=== PATIENT | female | born 1995 | race Caucasian/White ===

== ENCOUNTER → 2023-05-11 11:23 | Outpatient (CLI) | payer BC, SELFPAY ==
--- NOTE | ~2023-05-11 | XR_ITS ---
XR abdomen/kub 1V 05/11/2023 11:42 INDICATION: Abdominal pain TECHNIQUE: KUB COMPARISON: No prior studies for comparison. FINDINGS: Bowel gas pattern is normal. There is no evidence of free air, mass, organomegaly, ascites or obstruction. No abnormal calculi are seen. The bones appear intact. IMPRESSION: 1: No acute abdominal abnormality identified. Reviewed, dictated and finalized at location []
== END ==
PROVIDERS: PCP Family Medicine; Visit Provider Physician Assistant
DX: R10.9 Unspecified abdominal pain (principal)
CPT/HCPCS: 74018

== ENCOUNTER → 2023-05-17 08:45 | Outpatient (CLI) | payer BC, SELFPAY ==
--- NOTE | ~2023-05-17 | US_ITS ---
Abdominal Sonogram: Real-time sonographic imaging of the abdomen was performed. Clinical History: Abdominal pain Findings: The liver appears normal with no evidence of mass lesion or bile duct dilatation. Main por tevin vein demonstrates normal direction of flow. The spleen is normal in size without evidence of foca l lesion. The gallbladder is well distended, and appears normal with no evidence of gallstone or wal l thickening. The common bile duct measures 4 mm. The visualized pancreas, aorta, and IVC are unrema rkable. The right kidney measures 9.1 cm in length and the left kidney measures 9.9 cm. There is no hydronephrosis or renal calculus. Impression: Unremarkable abdominal ultrasound. Reviewed, dictated and finalized at location . Impression: Unremarkable abdominal ultrasound.
== END ==
PROVIDERS: PCP Physician Assistant; Visit Provider Physician Assistant
DX: R10.9 Unspecified abdominal pain (principal)
CPT/HCPCS: 76700

== ENCOUNTER 2024-11-10 11:13 | Inpatient (IN) | payer BC, SELFPAY ==
[2024-11-10] VITALS (53 sets, daily range): BP systolic 106–144; BP diastolic 33–95; PULSE 78–112; TEMP 36.1–36.6; O2SAT 94–100; BMI 37.0
[2024-11-10 12:22] LABS: Basophils Percent Auto 0.3 % (0.2-1.2); Eosinophils Absolute Auto 0.1 K/mm3 (0-0.3); Eosinophils Percent Auto 1.3 % (0-4.4); Hematocrit 36.9 % (37.0-47.0); Hemoglobin 12.2 g/dL (12.0-15.0); Immature Granulocyte Absolute 0.04 K/mm3 (0.00-0.031); Immature Granulocyte Percent A 0.5 % (0-0.5); Lymphocytes Absolute Auto 1.54 K/mm3 (0.9-3.2); Lymphocytes Percent Auto 19.9 % (18.3-44.2); Mean Corpuscular HGB Conc 33.1 g/dl (32-36); Mean Corpuscular Hemoglobin 28.4 pg (26-34); Mean Corpuscular Volume 85.8 fl (80-100); Monocytes Absolute Auto 0.6 K/mm3 (0.1-0.6); Monocytes Percent Auto 7.8 % (2.6-8.5); Neutrophils Absolute Auto 5.4 K/mm3 (1.3-6.7); Neutrophils Percent Auto 70.2 % (45.5-73.1); Platelet Count Result 253 k/mm3 (150-375); Red Cell Distribution Width 13.2 % (11.5-14.5); White Blood Count 7.7 K/mm3 (4.5-10.0)
[2024-11-10] MEDS: miSOPROStol 25 MCG TABLET 50 MCG BUCCAL ×2 (12:33→17:11)
[2024-11-10 12:53] LABS: Rapid Plasma Reagin Non-Reactive (NonReactive)
[2024-11-10 12:55] LABS: Alanine Aminotransferase 19 U/L (6-35); Albumin Level 3.3 g/dL (3.5-5.1); Alkaline Phosphatase 118 U/L (38-126); Anion Gap 6 mmol/L (4-12); Aspartate Amino Transferase 24 U/L (14-36); Bilirubin,Total 0.3 mg/dL (0.2-1.3); Blood Urea Nitrogen 13 mg/dL (7-17); Calcium 9.1 mg/dL (8.4-10.2); Carbon Dioxide 18 mmol/L (22-30); Chloride 110 mmol/L (98-107); Estimated Glomerular Filt Rate > 60; Glucose 91 mg/dL (65-110); Potassium 4.4 mmol/L (3.4-5.0); Sodium 134 mmol/L (137-145)
[2024-11-10] MEDS: AMPICILLIN 2 GM/NS 100 ML 2 GM/100 ML BAG IVPB (13:07)
[2024-11-10] MEDS: LACTATED RINGERS 1,000 ML 125 ML IV CONT (13:08)
[2024-11-10 13:16] LABS: HIV 1/2 Ab P24 Ag Result Negative (Negative)
--- NOTE | 2024-11-10 13:22 | LDADM ---
This patient, Edwin Nuñez, was admitted to Labor/Delivery/Recovery 107 on 11/10/24 at 11:13. Plans for labor, pain management and were discussed with patient. Patient/family oriented to hospital policies and general routines including ID bracelet, bed and alarms, visiting hours, pain management, procedures, bathroom and other care routines, personal items, smoking policy, room service/diet and guest tray routines, security routines, and visiting hours. Patient/Family are encouraged to report perceived risks to care and to ask questions if they do not understand what they are told or what they should do. See OBIX for further documentation.
[2024-11-10 15:27] LABS: Glucose Point of Care 104 mg/dl (65-105)
--- NOTE | 2024-11-10 16:48 | P.PNAN_ITS ---
Anes - Eval Pre Procedure Procedure: Labor epidural Date/Time: 11/10/24 16:48 Surgeon: Norberto Preop Diagnosis: Abdominal pain with contractions Pre Op Diagnosis: MIL Patient Data Age: 29 Gender: F Height: 1.65 m Weight: 101 kg Last Vital Signs Temp 97.9 F 11/10/24 13:30 Pulse 89 11/10/24 13:46 BP 122/81 11/10/24 13:46 O2 Del Method Room Air 11/10/24 13:20 Allergies Allergy/AdvReac Type Severity Reaction Status Date / Time No Known Allergies Allergy Verified 10/28/24 15:25 Home Medications ?Medication ?Instructions ?Recorded ?Confirmed ?Type vit no.95-ferrous 1 tablet PO DAILY 11/10/24 11/10/24 History fumarate 28 mg-folic acid 800 mcg tablet () Laboratory Tests 11/10/24 11/10/24 11/10/24 12:08 12:09 12:10 WBC 7.7 K/mm3 (4.5-10.0) RBC 4.30 M/mm3 (4.2-5.4) Hgb 12.2 g/dL (12.0-15.0) Hct 36.9 L % (37.0-47.0) MCV 85.8 fl (80-100) MCH 28.4 pg (26-34) MCHC 33.1 g/dl (32-36) RDW 13.2 % (11.5-14.5) Plt Count 253 k/mm3 (150-375) MPV 11.0 H fl (7.4-10.4) Immature Gran % (Auto) 0.5 % (0-0.5) Neut % (Auto) 70.2 % (45.5-73.1) Lymph % (Auto) 19.9 % (18.3-44.2) [place] % (Auto) 7.8 % (2.6-8.5) Eos % (Auto) 1.3 % (0-4.4) Baso % (Auto) 0.3 % (0.2-1.2) Lymph # (Auto) 1.54 K/mm3 (0.9-3.2) [place] # (Auto) 0.6 K/mm3 (0.1-0.6) Eos # (Auto) 0.1 K/mm3 (0-0.3) Baso # (Auto) 0.0 K/mm3 (0.0-0.1) Abs Immat Gran (auto) 0.04 H K/mm3 (0.00-0.031) Absolute Neuts (auto) 5.4 K/mm3 (1.3-6.7) Absolute Nucleated RBC 0.000 K/mm3 (0.0-0.012) Nucleated RBC % 0.0 % (0.0-0.2) Sodium 134 L mmol/L (137-145) Potassium 4.4 mmol/L (3.4-5.0) Chloride 110 H mmol/L (98-107) Carbon Dioxide 18 L mmol/L (22-30) Anion Gap 6 mmol/L (4-12) BUN 13 mg/dL (7-17) Creatinine 0.60 L mg/dL (0.7-1.0) Estim Creat Clear Calc Not Reportable Estimated GFR > 60 (59 - ) Glucose 91 mg/dL (65-110) POC Capillary Glucose Calcium 9.1 mg/dL (8.4-10.2) Total Bilirubin 0.3 mg/dL (0.2-1.3) AST 24 U/L (14-36) ALT 19 U/L (6-35) Alkaline Phosphatase 118 U/L (38-126) Total Protein 6.0 L g/dL (6.3-8.2) Albumin 3.3 L g/dL (3.5-5.1) RPR Non-reactive (NonReactive) HIV 1&2 Ab/P24 Ag 4thGn Negative (Negative) Blood Type O Positive Antibody Screen Negative 11/10/24 15:23 WBC RBC Hgb Hct MCV MCH MCHC RDW Plt Count MPV Immature Gran % (Auto) Neut % (Auto) Lymph % (Auto) [place] % (Auto) Eos % (Auto) Baso % (Auto) Lymph # (Auto) [place] # (Auto) Eos # (Auto) Baso # (Auto) Abs Immat Gran (auto) Absolute Neuts (auto) Absolute Nucleated RBC Nucleated RBC % Sodium Potassium Chloride Carbon Dioxide Anion Gap BUN Creatinine Estim Creat Clear Calc Estimated GFR Glucose POC Capillary Glucose 104 mg/dl (65-105) Calcium Total Bilirubin AST ALT Alkaline Phosphatase Total Protein Albumin RPR HIV 1&2 Ab/P24 Ag 4thGn Blood Type Antibody Screen : gestational age HCG: positive Patient hx anesthesia problems: none Family hx anesthesia problems: none Results Review: All pre-operative results and documents have been reviewed as part of the pre- operative evaluation. COUNT INCLUDES THE [facility] Past Medical History Medical History (Updated 11/10/24 @ 16:49 by Ziyad Doss Jr., CRNA) Obesity Gestational diabetes Generalized anxiety disorder Acne Eczema Psoriasis Family History Family History Grandparent Brain cancer Social History Social History Smoking status: Never smoker Substance use: never Do You Feel Safe in your Home?: Yes Lack of Transportation: No Lack of Food: Never True Current Housing: I Have Housing Concerned About Future Housing: No Difficulty Paying Gas/Electric Bills: No Difficulty Paying for Meds: No Currently Unemployed: No Education: Bachelor's Degree Difficulty w/ Childcare or Family Care: No Spiritual care concerns: No Exam Day of Procedure 11/10/24 16:48 Patient weight: obese Heart: regular rate and rhythm Lungs: clear to auscultation Airway: Mallampati scale class II Neurological: alert and oriented
[2024-11-10] MEDS: AMPICILLIN 1 GM/NS 50 ML 1 GM/50 ML BAG IVPB ×2 (17:04→21:12)
[2024-11-10 19:12] LABS: Glucose Point of Care 77 mg/dl (65-105)
[2024-11-10] MEDS: OXYTOCIN 30 UNITS/NS 500 ML 30 UNITS/500 ML BAG IV CONT (21:11)
[2024-11-11] VITALS (49 sets, daily range): BP systolic 89–139; BP diastolic 51–97; PULSE 25–200; RESP 18; TEMP 36.1–36.9; O2SAT 67–100
[2024-11-11 00:08] LABS: Glucose Point of Care 131 mg/dl (65-105)
[2024-11-11] MEDS: AMPICILLIN 1 GM/NS 50 ML 1 GM/50 ML BAG IVPB (01:13)
[2024-11-11 02:12] LABS: Glucose Point of Care 94 mg/dl (65-105)
[2024-11-11] MEDS: LACTATED RINGERS 1,000 ML 125 ML IV CONT (02:16)
--- NOTE | 2024-11-11 04:19 | PM.OBPRVD ---
OB - Vaginal Delivery Note Procedure Delivery date: 11/11/24 Events: Gestational Diabetes (insulin at hs) and Gestational Hypertension Induction method: AROM, Per Misoprostol Protocol and Per Pitocin Protocol Delivery monitor: External FHT and Internal Uterine Route of delivery: Episiotomy description: None Laceration Description: None Specimen: No Quantitative Blood Loss (ml): 80 Anesthesia type: Epidural Disposition: Floor Complications: No immediate complications Baby Date of : 11/11/24 Time of : 04:08 Gestational Age by Date: 38 Infant gender: Male presentation: vertex position: Left Occiput Anterior Placenta delivery description: Spontaneous Cord Vessel Description: 3 Vessels, Nuchal Cord (x1) and Delayed Cord Clamping score one minute: 9 score five minutes: 9
[2024-11-11] MEDS: OXYTOCIN 30 UNITS/NS 500 ML 30 UNITS/500 ML BAG 125 UNITS IV CONT (04:45)
[2024-11-11] MEDS: BENZOCAINE 20% AER SPR (*SP) 56 GM CAN 1 SPRAY TOPICAL (06:30)
[2024-11-11] MEDS: WITCH HAZEL 40 PADS 1 PAD TOPICAL (06:30)
[2024-11-11] MEDS: IBUPROFEN 600 MG TABLET PO ×2 (07:03→19:15)
--- NOTE | 2024-11-11 07:56 | OBPPTRN ---
Patient transferred to post room # 288 via wheelchair. Support person present. Oriented to unit, room, information board, rooming in, admission packet and security measures. Patient verbalizes understanding.
--- NOTE | 2024-11-11 09:00 | PC.NURSE ---
Infant had a low glucose and needed gel and formula supplementation. Primary RN place skin to skin with mom and requested feeding assistance. Mom anticipated baby would be too sleepy after the formula to breastfeed, but as we spoke he began sucking on his hands. Observed mother latching to the [right] breast in [cradle] position. Infant [was] able to maintain an appropriate latch, coming off every few minutes and needing to relatch. He did 10-15 minutes on the first breast and we offered the left breast as well. Mom wanted to try football position and it worked very well for the dyad. Mother [declines] nipple pain/discomfort [throughout feeding]. Encouraged mother to keep infant awake and nursing at the breast for 15 minutes. Mother taught to listen for infant swallowing during feedings. Reviewed using the blue feeding sheet to record time and duration of feeding. Mother voiced understanding of the education shared, to call for assistance if the does not latch or if there is discomfort with . name/number on communication board. Reported to the Primary RN.?
[2024-11-11] MEDS: MULTIVIT/MIN/PREN/FOL AC/IRON TABLET 1 TAB PO (13:02)
--- NOTE | 2024-11-11 17:00 | PC.NURSE ---
Went to patient room to give her the admission packet. She was saying that she thought baby was hungry but she was having trouble getting him to settle to feed. Encouraged skin to skin to regulate baby and then attempting to feed when he is calmer. Advised mom to call out for assistance if needed. Reported to primary RN.
[2024-11-11] MEDS: ACETAMINOPHEN 325 MG TABLET 650 MG PO (22:01)
[2024-11-12 04:59] LABS: Hematocrit 34.2 % (37.0-47.0); Hemoglobin 10.8 g/dL (12.0-15.0)
[2024-11-12 07:35] VITALS: BP 115/79; PULSE 82; RESP 18; TEMP 36.5; O2SAT 100
[2024-11-12] MEDS: IBUPROFEN 600 MG TABLET PO ×2 (08:18→18:34)
[2024-11-12] MEDS: MULTIVIT/MIN/PREN/FOL AC/IRON TABLET 1 TAB PO (08:18)
[2024-11-12] MEDS: DOCUSATE SODIUM 100 MG CAPSULE PO ×2 (08:29→19:42)
--- NOTE | 2024-11-12 10:00 | PC.NURSE ---
Introductions were made, then consulted with patient to assess needs related to . Mother led the conversation with her?plans to feed?her and the?experience so far. Mother plans to exclusively breastfeed her baby until she goes back to work and then plans to pump and bottle feed as well. Her is going to bring in her breast pump and RN can go over usage and instructions then, measured both nipples and they were each 20mm. Encouraged understanding of the benefits of skin to skin (demonstrating unwrapping and placing upright on her chest), stimulating with massage touch, changing positions to encourage wakefulness, how to watch for early feeding cues, responsive feeding, feeding on demand (aiming for 8-12 times in 24 hours, about every 2-3 hours), milk production, building/maintaining a milk supply, duration of feeding, signs of adequate intake/output and how to record on the feeding sheet. Mother works well with her with encouragement and education. Reviewed positioning and ear, shoulder, hip alignment, supporting the breast to facilitate a deep latch, asymmetrical latch (off-center), leading with the chin with a big, open, wide gape and body close to mother. latched optimally to the [left] breast in [cross cradle] position. Education given to the mother of how to visualize the suckling (with good rocking jaw motion), swallows (dropping of the lower jaw) and how to listen for drinking at the breast (the ka sound). Infant was [able] to maintain latch without pain to mother protecting the nipple with optimal positioning and latching. Reviewed comfort measures of healing with a warm, wet washcloth to rinse breast, then leave open to air-dry, good handwashing when or touching the breast/nipples to prevent infection. Mother voiced understanding of skin to skin, stimulating with massage touch, responsive feedings, hand expressed colostrum, talking to to encourage if it has been 2 -2.5 hours since the start of the last , to call if does not latch, or if there is discomfort with . Resources used for education were facilitated with the [visual educational handouts/ tool/mom and baby guide], Inpatient/outpatient resources provided with business card, feeding sheet, name written on the communication board, and the mom/baby guide. Parents voiced understanding of information, demonstrated learning and will call if there is a request for assistance. Reported to the Primary RN.
[2024-11-12] MEDS: ACETAMINOPHEN 325 MG TABLET 650 MG PO (11:38)
[2024-11-12 12:43] VITALS: BP 130/71; PULSE 84; RESP 16; TEMP 36.6; O2SAT 100
[2024-11-12 16:30] VITALS: BP 134/76; PULSE 84; RESP 16; O2SAT 100
--- NOTE | 2024-11-12 16:40 | P.PNOB_ITS ---
OB - PN: Subj Subjective Date/time seen: 11/12/24 16:40 Interval history: PPD#1 Doing well, no issues Pain well controlled, some tailbone discomfort Voiding without issue OB - PN: Obj Data Labs 11/12/24 04:37 11/10/24 12:09 Labs: Laboratory Results - last 24 hr 11/12/24 04:37 Hgb 10.8 L Hct 34.2 L OB - PN A/P Assessment and Plan (1) Gestational hypertension: Code(s): O13.9 - Gestational [-induced] hypertension without significant proteinuria, unspecified trimester Status: Acute Assessment and Plan: - asymptomatic - normotensive (2) (spontaneous vaginal delivery): Code(s): O80 - Encounter for full-term uncomplicated delivery Status: Acute Plan day: 1 Plan: routine care Time Spent With Patient Time: Total time spent is greater than 50% in coordination of care (as documented) at patient's floor/unit and/or counseling patient: Review of Systems 2 Review of Systems: All systems reviewed & are unremarkable except as noted in HPI and below Exam 2 Const: General: comfortable and no acute distress O rientation/consciousness: patient oriented x3 Resp: Effort & Inspection: normal respiratory effort
--- NOTE | 2024-11-12 18:34 | WPDANLDPN2 ---
Anes-Prog Note L&D Date/Time: 11/12/24 18:34 Comfortable throughout: labor and delivery Neuraxial method: epidural Epidural/Spinal procedure site: clean & non-tender Neuro status: Neuro function grossly intact. Cardiovascular status: normal Respiratory status: normal Airway patency: baseline Mental status: baseline Post-Op hydration status: normal Vital Signs: Last Vital Signs Temp 97.9 F 11/12/24 12:43 Pulse 84 11/12/24 16:30 Resp 16 11/12/24 16:30 BP 134/76 11/12/24 16:30 Pulse Ox 100 11/12/24 16:30 O2 Del Method Room Air 11/12/24 08:15 Pain score (VAS): 0/10 Post-procedural complaints: none Patient feedback: Patient satisfied with anesthetic care.
[2024-11-12 19:30] VITALS: BP 124/72; PULSE 81; RESP 16; TEMP 37.2; O2SAT 99
[2024-11-13 00:09] VITALS: BP 112/75; PULSE 83; RESP 16; TEMP 36.2; O2SAT 99
[2024-11-13 05:17] VITALS: BP 112/75; PULSE 83; RESP 16; TEMP 36.6; O2SAT 99
[2024-11-13] MEDS: DOCUSATE SODIUM 100 MG CAPSULE PO (06:51)
[2024-11-13] MEDS: IBUPROFEN 600 MG TABLET PO (06:51)
[2024-11-13] MEDS: MULTIVIT/MIN/PREN/FOL AC/IRON TABLET 1 TAB PO (06:51)
--- NOTE | 2024-11-13 08:33 | P.PNOB_ITS ---
OB - PN: Subj Subjective Date/time seen: 11/13/24 08:33 Interval history: PPD#1 Doing well, no issues Pain well controlled, some tailbone discomfort Voiding without issue Patient comments: no complaints, pain well controlled and tolerating diet OB - PN: Obj Data Labs 11/12/24 04:37 11/10/24 12:09 OB - PN A/P Plan day: 2 Plan: routine care and discharge home Time Spent With Patient Time: Total time spent is greater than 50% in coordination of care (as documented) at patient's floor/unit and/or counseling patient: Exam 2 Const: General: comfortable and no acute distress Resp: Effort & Inspection: normal respiratory effort Auscultation: no rales, no rhonchi and no wheezes Cardio: Rate: regular rate Heart sounds: no click, no murmurs and no rubs GI: GI Palp: Yes Soft to palpation and No Tenderness to palpation present (GI) Auscultation: normal bowel sounds Extrem: General: normal to inspection, no pedal edema and no calf tenderness
--- NOTE | 2024-11-13 08:34 | P.DS_ITS ---
DS: Admitting Diagnosis Discharge Date 11/13/24 Admitting Diagnosis term DS: Discharge Diagnosis Discharge Diagnosis (1) Term delivered: Code(s): O80 - Encounter for full-term uncomplicated delivery Status: Acute OB - DS: Summary OB Procedures : None OB Procedures Intrapartum: Spontaneous Vag Delivery OB Procedures: : None Peripartum Data Laceration Description: None Episiotomy description: None Time Spent with Patient Time attestation: Total time spent providing and/or coordinating discharge services: Discharge Plan Discharge Discharging Clinician: Moshe Thornton Activity: pelvic rest Diet: regular Patient Language: Persian Discharge Medications: Continued PNV cmb#95-ferrous fumarate-FA [] 28 mg iron- 800 mcg tablet 1 tablet PO DAILY Date of admission: 11/10/24 11:13 Primary Care Provider: Damien Worley Admitting Provider: Valentino Arauz Attending physician on admission: Valentino Arauz Condition: Stable
[2024-11-13 08:45] VITALS: BP 121/81; PULSE 89; RESP 18; TEMP 37.2; O2SAT 100
--- NOTE | 2024-11-13 09:00 | PC.NURSE ---
Consulted with mother concerning needs and she shared her ability to independently latch infant optimally without pain. No concerns at this time, baby fed great over night and mother even saw milk around baby's mouth. Mother is feeding appropriately for growth of and understands stimulating infant to eat if needed. has had appropriate feedings in the last 24 hours meets the outcomes for weight, output, blood sugar and jaundice at this time. Reinforced understanding of milk production, transition of milk, signs of adequate intake, transition of stool, prevention/relief of engorgement, plugged ducts, mastitis, responsive watching for feeding cues, the different methods of stimulating to breastfeed 1-3 hours after the start of the last feeding, community resources, and when to call a provider using the resource of the feeding sheet along with the mom and baby guide. Mother voiced understanding of the information shared, is confident to continue effectively her infant at home, when to call for assistance, denies any additional assistance or education at this time. Reported to the Primary RN.
--- NOTE | 2024-11-13 10:47 | PC.NURSE ---
Patient viewed the discharge video Mother & Baby Care, The First Two Weeks . Patient was given the opportunity and encouraged to ask questions. Patient verbalized understanding of information shared and has been given the mother/baby guide for home reference.
[2024-11-13 12:31] VITALS: BP 125/75; PULSE 91; RESP 18; TEMP 37.4; O2SAT 97
[2024-11-14 11:40] VITALS: BP 136/85; PULSE 96; RESP 18; TEMP 37.2; O2SAT 100
== END 2024-11-13 13:33 | disposition home or self-care (01) | DRG 807 ==
LOC: ANHLDR 12:42 → ANHOB2 11-13 08:35 → ANHLDR 11-14 10:58 → ANHOB2 11-14 10:58
PROVIDERS: Admitting Provider Obstetrics & Gynecology; PCP Family Medicine; Referring Provider Advanced Practice Midwife; Visit Provider Obstetrics & Gynecology
DX: O24.424 Gestational diabetes mellitus in childbirth, insulin controlled (principal); Z37.0 Single live birth; Z3A.38 38 weeks gestation of pregnancy; O13.4 Gestational [pregnancy-induced] hypertension without significant proteinuria, complicating childbirth; O99.824 Streptococcus B carrier state complicating childbirth; O69.81X0 Labor and delivery complicated by cord around neck, without compression, not applicable or unspecified
CPT/HCPCS: 36415; 80053; 82948; 85014; 85018; 85025; 86592; 86703; 86850; 86900; 86901; A9270; G0432; J0290; J2590; J2795; J7120